=== PATIENT | male | born 1965 | race African-American/Black ===

== ENCOUNTER 2020-04-08 18:59 | Inpatient (IN) | payer MEDICAID ==
[2020-04-08 21:50] LABS: Basophils % (Auto) 0.2 % (0.0-1.8); Hematocrit 51.2 % (35.5-45.6); Hemoglobin 17.5 gm/dl (11.8-15.2); Lymphocytes # (Auto) 0.6 K/mm3 (1.2-5.4); Lymphocytes % (Auto) 9.5 % (13.4-35.0); Mean Corpuscular HGB Conc 34 % (32-34); Mean Corpuscular Volume 94 fl (84-94); Monocytes # (Auto) 0.5 K/mm3 (0.0-0.8); Monocytes % (Auto) 7.6 % (0.0-7.3); Platelet Count 162 K/mm3 (140-440); Red Blood Count 5.42 M/mm3 (3.65-5.03); Red Cell Distribution Width 13.2 % (13.2-15.2)
[2020-04-08 22:04] LABS: Alanine Aminotransferase 26 units/L (7-56); Albumin 3.6 g/dL (3.9-5); BUN/Creatinine Ratio 19; Blood Urea Nitrogen 19 mg/dL (9-20); Calcium 9.2 mg/dL (8.4-10.2); Hemolysis Index 35
--- NOTE | 2020-04-08 22:50 | XRay Report ---
CHEST 2 VIEWS INDICATION / CLINICAL INFORMATION: cough, fever. COMPARISON: 07/30/2019 FINDINGS: SUPPORT DEVICES: None. HEART / MEDIASTINUM: Stable. LUNGS / PLEURA: Interval development of linear infiltrate in the right midlung field. Emphysematous l mercy changes with bulla are similar. No pneumothorax. No pleural effusion. ADDITIONAL FINDINGS: ACDF the lower cervical spine in stable position. IMPRESSION: 1. Interval development of infiltrate in the right midlung field likely represents infectious process given the patient's clinical history. 2. Stable emphysematous lung changes with bulla formation. Signer Name: Elias Tellez MD Signed: 04/08/2020 10:46 PM Workstation Name: [id number]
[2020-04-09] MEDS ORDERED: cefTRIAXone/NS 1 GM/50 ML 1 GM/50 ML BAG IV ONE (02:17)
[2020-04-09] MEDS ORDERED: dexAMETHasone 20 MG/5 ML VIAL IV ONE (02:17)
[2020-04-09] MEDS ORDERED: IPRATROPIUM/ALBUTEROL SULFATE 3 ML AMPUL.NEB IH ONE (02:17)
[2020-04-09] MEDS ORDERED: AZITHROMYCIN 250 MG TAB PO ONE (02:17)
[2020-04-09] MEDS ORDERED: SODIUM CHLORIDE 0.9% 1000 ML 1,000 ML IV ONE ×2 (02:18→05:21)
[2020-04-09 04:02] LABS: Bacteria,Urine 1+ /HPF (Negative); Bilirubin,Urine NEG (Negative); Blood,Urine NEG (Negative); Color,Urine Amber (Yellow); Mucus,Urine 3+ /HPF
[2020-04-09 04:04] LABS: C-Reactive Protein 14.5 mg/dL (0.00-1.30)
--- NOTE | 2020-04-09 05:14 | Emergency Department Report ---
ED Shortness of Breath HPI - General Chief Complaint: Dyspnea/Respdistress Stated Complaint: FATIGUE, TIRED Source: family Mode of arrival: Ambulatory Limitations: No Limitations - History of Present Illness Initial Comments: Patient is a 54-year-old Israeli male with a history of hypertension, COPD and hepatitis B who presents to the ED with complaint of acute onset per sistent worsening shortness of breath, persistent dry cough, wheezing, generalized weakness, diffuse body aches and pains, nasal and sinus congestion and subjective fever and chills for the last 4 days. Patient states that any exertion makes the pain worse as well as his shortness of breath. Patient states that the cough got worse in the last 12 hours such that he cannot rest without coughing. Patient states that no one else at home has had similar symptoms. Patient denies dizziness, syncope, chest pain, abdominal pain, nausea and vomiting, diarrhea, sore throat, change in vision, dysuria, urine frequency and urgency, seizures or testicular pain. MD Complaint: shortness of breath, cough -: Sudden, days(s) (4) Severity: severe Pain Scale: 7 Quality: other (Chest tightness) Consistency: constant Improves With: nothing Worsens With: exertion, movement, coughing Known History Of: COPD, asthma Context: recent URI Associated Symptoms: denies other symptoms, cough Treatments Prior to Arrival: none - Related Data Home Oxygen Therapy: No Allergies Allergy/AdvReac Type Severity Reaction Status Date / Time haloperidol [From Haldol] Allergy Nausea Verified 07/30/19 10:16 haloperidol lactate Allergy Nausea Verified 07/30/19 10:16 [From Haldol] ED Review of Systems ROS: Stated complaint: FATIGUE, TIRED Other details as noted in HPI Constitutional: denies: chills, fever Eyes: denies: eye pain, eye discharge, vision change ENT: congestion. denies: ear pain, throat pain Respiratory: cough, shortness of breath, SOB with exertion, wheezing Cardiovascular: denies: chest pain, palpitations Endocrine: no symptoms reported Gastrointestinal: denies: abdominal pain, nausea, vomiting, diarrhea Genitourinary: denies: urgency, dysuria Musculoskeletal: denies: back pain, joint swelling, arthralgia Skin: denies: rash, lesions Neurological: denies: headache, weakness, paresthesias Psychiatric: denies: anxiety, depression Hematological/Lymphatic: denies: easy bleeding, easy bruising ED Past Medical Hx - Past Medical History Previous Medical History?: Yes Hx Hypertension: Yes Hx Psychiatric Treatment: Yes Hx COPD: Yes Additional medical history: Hepatitis B - Surgical History Past Surgical History?: Yes Additional Surgical History: Certvical Spine - Social History Smoking Status: Never Smoker Substance Use Type: None ED Physical Exam - General Limitations: No Limitations General appearance: alert, in no apparent distress - Head Head exam: Present: atraumatic, normocephalic, normal inspection - Eye Eye exam: Present: normal appearance, PERRL, EOMI Pupils: Present: normal accommodation - ENT ENT exam: Present: normal orophraynx, mucous membranes moist, TM's normal bilaterally, normal external ear exam, other (Grossly congested nasal passages) - Neck Neck exam: Present: normal inspection, full ROM - Respiratory Respiratory exam: Present: wheezes (Diffuse coarse wheezes throughout). Absent: respiratory distress, chest wall tenderness, accessory muscle use, decreased breath sounds - Cardiovascular Cardiovascular Exam: Present: normal rhythm, tachycardia, normal heart sounds. Absent: systolic murmur, diastolic murmur, rubs, gallop - GI/Abdominal GI/Abdominal exam: Present: soft, normal bowel sounds. Absent: tenderness, guarding, rebound, hyperactive bowel sounds, organomegaly - Extremities Exam Extremities exam: Present: normal inspection, full ROM, normal capillary refill - Back Exam Back exam: Present: normal inspection, full ROM. Absent: tenderness, CVA tenderness (R), CVA tenderness (L), muscle spasm, paraspinal tenderness, vertebral tenderness - Neurological Exam Neurological exam: Present: alert, oriented X3, CN II-XII intact, normal gait, reflexes normal - Psychiatric Psychiatric exam: Present: normal affect, normal mood, anxious - Skin Skin exam: Present: warm, dry, intact, normal color. Absent: rash ED Course Vital Signs 04/08/20 04/09/20 20:52 02:50 Temperature 98.1 F Pulse Rate 114 H Pulse Rate [ 116 H Bilateral] Respiratory 22 Rate Respiratory 22 Rate [Bilateral ] Blood Pressure 112/73 O2 Sat by Pulse 95 Oximetry ED Medical Decision Making - Lab Data Result diagrams: 04/08/20 21:06 04/09/20 03:05 - Radiology Data Radiology results: report reviewed, image reviewed Chest x-ray shows interval development of infiltrate in the right mild lung likely represents infectious process given the patient clinical history. It also shows stable emphysematous lung changes with bulla formation - Medical Decision Making This is a 54-year-old Israeli male with a history of hypertension, COPD and hepatitis B who presents to the ED with complaint of acute onset persistent worsening shortness of breath, persistent dry cough, wheezing, generalized weakness, diffuse body aches and pains, nasal and sinus congestion and subjective fever and chills for the last 4 days. Patient states that any exertion makes the pain worse as well as his shortness of breath. Patient states that the cough got worse in the last 12 hours such that he cannot rest without coughing. Patient states that no one else at home has had similar symptoms. In the ED, patient is alert and oriented x3 and in mild respiratory distress with oxygen saturation of 90% in room air, which gets worse with exerti on to 86% in room air. Patient received DuoNeb treatment in the ED, Decadron, normal saline 1 L IV bolus x1, and also treated with Tylenol. Chest x-ray shows interval development of infiltrate in the right mild lung likely represents infectious process given the patient clinical history. It also shows stable emphysematous lung changes with bulla formation. On reevaluation, patient's oxygen saturation continues to deteriorate to around 88% in room air. Patient was placed on nasal canula oxygen at 2 liters/min. The patient's oxygen saturation improved to 96%. Patient's case was discussed with the Hospitalist Physician Dr. Chan and Ms Gricelda MILLARD hospitalist who admitted the patient to the hospital. - Differential Diagnosis Pneumonia; COPD; Covid-19; URI; ACS; PE; Bronchitis Critical care attestation.: If time is entered above; I have spent that time in minutes in the direct care of this critically ill patient, excluding procedure time. ED Disposition Clinical Impression: Dyspnea due to severe acute respiratory syndrome coronavirus 2 (SARS-CoV-2) disease, Acute exacerbation of COPD with asthma, Pneumonia due to severe acute respiratory syndrome coronavirus 2 (SARS-CoV-2), Shortness of breath on exertion Disposition: OP ADMIT IP TO THIS HOSP Is pt being admited?: Yes Does the pt Need Aspirin: Yes Condition: Stable Instructions: Asthma (ED), Bacterial Pneumonia (ED), Shortness of Breath, Adult, [id number], Chronic Obstructive Pulmonary Disease Exacerbation, [id number] Referrals: PRIMARY CARE, [Primary Care Provider] - 3-5 Days Time of Disposition: 05:26 Print Language: TURKISH
[2020-04-09] MEDS ORDERED: ACETAMINOPHEN 325 MG TAB PO ONE (05:21)
[2020-04-09] MEDS ORDERED: ASPIRIN 81 MG TAB CHEW PO ONE (05:33)
[2020-04-09] MEDS ORDERED: ACETAMINOPHEN 325 MG TAB PO PRN (05:35)
[2020-04-09] MEDS ORDERED: ONDANSETRON 4 MG/2 ML INJ IV PRN (05:35)
--- NOTE | 2020-04-09 05:52 | History and Physical Report ---
History of Present Illness Date of examination: 04/09/20 Date of admission: 04/09/20 Chief complaint: 04/09/20 History of present illness: Patient is a 54-year-old [place]ian male with a history of hypertension, COPD and hepatitis B who presents to the ED with complaint of acute onset persistent worsening shortness of breath, persistent dry cough, wheezing, gen eralized weakness, diffuse body aches and pains, nasal and sinus congestion and subjective fever and chills for the last 4 days. Patient states that any exertion makes the pain worse as well as his shortness of breath. Patient states that the cough got worse in the last 12 hours such that he cannot rest without coughing. Patient states that no one else at home has had similar symptoms. Patient denies dizziness, syncope, chest pain, abdominal pain, nausea and vomiting, diarrhea, sore throat, change in vision, dysuria, urine frequency and urgency, seizures or testicular pain. Ed work up shows sodium 132, potassium 4.2, C02 19,[id number], WBC 6.7 and hemoglobin 17.5 Ferritin 960, [id number], CRP 13.5 Chest x-ray shows -right midlung infiltrate/emphysema patient seen at bedside in Ed. reviewed lab, mar, and v/s. patient denies tobacco, alcohol and illicit drug abuse. Past History Past Medical History: COPD, hypertension, other (Hep B) Past Surgical History: Other (pt said neck surgery) Social history: no significant social history Family history: no significant family history Medications and Allergies Allergies Allergy/AdvReac Type Severity Reaction Status Date / Time haloperidol [From Haldol] Allergy Nausea Verified 07/30/19 10:16 haloperidol lactate Allergy Nausea Verified 07/30/19 10:16 [From Haldol] Active Meds: Active Medications Acetaminophen (Acetaminophen 325 Mg Tab) 650 mg PO Q4H PRN PRN Reason: Pain MILD(1-3)/Fever >100.5/SHI Sodium Chloride (Nacl 0.9% 1000 Ml) 1,000 mls @ 999 mls/hr IV BOLUS ONE Stop: 04/09/20 06:21 Ondansetron HCl (Ondansetron 4 Mg/2 Ml Inj) 4 mg IV Q8H PRN PRN Reason: Nausea And Vomiting Sodium Chloride (Sodium Chloride 0.9% 10 Ml Flush Syringe) 10 ml IV BID [facility] Sodium Chloride (Sodium Chloride 0.9% 10 Ml Flush Syringe) 10 ml IV PRN PRN PRN Reason: LINE FLUSH Review of Systems Constitutional: chills, fatigue, weakness, malaise Ears, nose, mouth and throat: no epistaxis, no bleeding gums Cardiovascular: orthopnea, high blood pressure Respiratory: cough, shortness of breath, dyspnea on exertion, wheezing, respira tory infections Gastrointestinal: no melena Genitourinary Male: no dysuria Rectal: no hemorrhoids Musculoskeletal: no neck stiffness Integumentary: no rash, no wounds Neurological: no head injury Psychiatric: anxiety Endocrine: no weight change Hematologic/Lymphatic: no easy bruising Exam - Constitutional Vitals: Temp Pulse Resp BP Pulse Ox 98.1 F 116 H 22 112/73 95 04/08/20 20:52 04/09/20 02:50 04/09/20 02:50 04/08/20 20:52 04/08/20 20:52 General appearance: Present: mild distress - EENT Eyes: Present: PERRL ENT: hearing intact, clear oral mucosa - Neck Neck: Present: supple, normal ROM - Respiratory Respiratory effort: other (shortness of breath and cough) Respiratory: bilateral: wheezing - Cardiovascular Heart rate: 114 Heart Sounds: Present: S1 & S2. Absent: rub, click - Extremities Extremities: pulses symmetrical, No edema Peripheral Pulses: within normal limits - Abdominal General gastrointestinal: Present: soft, non-tender, non-distended, normal bowel sounds Male genitourinary: Present: normal - Integumentary Integumentary: Present: clear, warm, dry - Musculoskeletal Musculoskeletal: gait normal, strength equal bilaterally - Psychiatric Psychiatric: appropriate mood/affect, intact judgment & insight - Neurologic Neurologic: CNII-XII intact, moves all extremities - Allied Health Allied health notes reviewed: nursing HEART Score - HEART Score Troponin: Troponin T < 0.010 ng/mL (0.00-0.029) 04/09/20 03:05 Results - Labs CBC & Chem 7: 04/08/20 21:06 04/09/20 03:05 Labs: Abnormal lab results 04/08/20 04/08/20 04/09/20 Range/Units 21:06 21:06 03:05 RBC 5.42 H (3.65-5.03) M/mm3 Hgb 17.5 H (11.8-15.2) gm/dl Hct 51.2 H (35.5-45.6) % Lymph % (Auto) 9.5 L (13.4-35.0) % [place] % (Auto) 7.6 H (0.0-7.3) % Lymph # (Auto) 0.6 L (1.2-5.4) K/mm3 Seg Neutrophils % 82.7 H (40.0-70.0) % Sodium 132 L (137-145) mmol/L Carbon Dioxide 19 L (22-30) mmol/L Glucose 141 H 124 H (75-100) mg/dL Ferritin (30.0-300.0) ng/mL Lactate Dehydrogenase 324 H (91-180) units/L C-Reactive Protein 14.50 H (0.00-1.30) mg/dL Albumin 3.6 L (3.9-5) g/dL Ur Specific [place] (1.003-1.030) 04/09/20 04/09/20 Range/Units 03:05 03:52 RBC (3.65-5.03) M/mm3 Hgb (11.8-15.2) gm/dl Hct (35.5-45.6) % Lymph % (Auto) (13.4-35.0) % [place] % (Auto) (0.0-7.3) % Lymph # (Auto) (1.2-5.4) K/mm3 Seg Neutrophils % (40.0-70.0) % Sodium (137-145) mmol/L Carbon Dioxide (22-30) mmol/L Glucose (75-100) mg/dL Ferritin 960.9 H (30.0-300.0) ng/mL Lactate Dehydrogenase (91-180) units/L C-Reactive Protein (0.00-1.30) mg/dL Albumin (3.9-5) g/dL Ur Specific [place] 1.033 H (1.003-1.030) Assessment and Plan - Patient Problems (1) Acute respiratory failure with hypoxia Current Visit: Yes Status: Acute Plan to address problem: oxygen supplement [id number] patient wheezing on auscultation-continue systemic steroids (2) Acute exacerbation of COPD with asthma Current Visit: Yes Status: Acute Plan to address problem: respiratory care-bronchodilators and oxygen supplement Chest x-ray shows right midline infiltrate and emphysema [employer] consult (3) Person under investigation for COVID-19 Current Visit: Yes Status: Acute Plan to address problem: Chest x-ray shows infiltrate Etiology unknown-Covid 19 test ordered- Empiric abx Elevated inflammatory makers-trend Airborne and contact isolation Ascorbic acid and zinc sulphate Blood culture-urinalysis (4) Polycythemia Current Visit: Yes Status: Acute Plan to address problem: Most likely 2/2 to chronic hypoxia/COPD/dehydration Continue oxygen supplement patient denies tobacco use daily aspirin Monitor H/H (5) Hyponatremia Current Visit: Yes Status: Acute Plan to address problem: IV hydration with .9NS Monitor sodium level Monitor kidney function (6) DVT prophylaxis Current Visit: Yes Status: Acute Plan to address problem: Lovenox
[2020-04-09] MEDS ORDERED: traMADol 50 MG TAB PO PRN (06:22)
[2020-04-09] MEDS ORDERED: LACTULOSE 20 GM/30 ML ORAL LIQD PO PRN (06:22)
[2020-04-09] MEDS ORDERED: traZODone 50 MG TAB PO PRN (06:22)
[2020-04-09] MEDS ORDERED: MORPHINE 2 MG/1 ML INJ IV PRN (06:22)
[2020-04-09] MEDS ORDERED: ALUM-MAG HYDROXIDE-SIMETHICONE 200-200-20MG/5ML ORAL LIQD 30 ML PO PRN (06:22)
[2020-04-09 07:59] LABS: C-Reactive Protein 13.8 mg/dL (0.00-1.30)
[2020-04-09] MEDS: dexAMETHasone 4 MG/ML VIAL IV SCH (09:31)
[2020-04-09] MEDS: ASPIRIN EC 81 MG TAB PO SCH (09:31)
[2020-04-09] MEDS: ENOXAPARIN 40 MG/0.4 ML INJ SUB-Q SCH (09:31)
[2020-04-09] MEDS: FAMOTIDINE 20 MG TAB PO SCH (09:31)
[2020-04-09] MEDS: cefTRIAXone/NS 2 GM/100 ML 2 GM/100 ML BAG IV SCH (09:32)
[2020-04-09] MEDS ORDERED: AZITHROMYCIN 500 MG in SODIUM CHLORIDE 0.9% 250ML 250 ML IV SCH (10:00)
--- NOTE | 2020-04-09 11:59 | Event Note ---
Date: 04/09/20 Patient was admitted this morning, patient's chart and medications reviewed Agree with the current management, will closely monitor the patient and adjust the management as needed Plan of care reviewed with the patient and his nurse
--- NOTE | 2020-04-09 13:54 | Consultation ---
History of Present Illness Consult date: 04/09/20 Requesting physician: ANGEL IVAN Reason for consult: COPD, other (PUI COVID-19) History of present illness: PULMONARY/CCM CONSULT NOTE (Full dictation # [id number]) Please see dictated notes for full details Past History Past Medical History: COPD, hypertension, other (Hep B) Past Surgical History: Other (pt said neck surgery) Social history: no significant social history Family history: no significant family history Medications and Allergies Allergies Allergy/AdvReac Type Severity Reaction Status Date / Time haloperidol [From Haldol] Allergy Nausea Verified 07/30/19 10:16 haloperidol lactate Allergy Nausea Verified 07/30/19 10:16 [From Haldol] Home Medications Medication Instructions Recorded Confirmed Last Taken Type Entecavir 1 mg PO DAILY 04/10/20 04/10/20 Unknown History Fluticasone/Salmeterol [Advair 1 puff IH BID 04/10/20 04/10/20 Unknown History Diskus 500-50 mcg] Lisinopril [Zestril] 10 mg PO DAILY 04/10/20 04/10/20 Unknown History Pantoprazole Sodium 40 mg PO DAILY 04/10/20 04/10/20 Unknown History Tamsulosin [Flomax] 0.4 mg PO DAILY 04/10/20 04/10/20 Unknown History Active Meds: Active Medications Acetaminophen (Acetaminophen 325 Mg Tab) 650 mg PO Q4H PRN PRN Reason: Pain MILD(1-3)/Fever >100.5/SHI Al Hydrox/Mg Hydrox/Simethicone (Alum-Mag Hydroxide-Simethicone 350-850-60sz/5ml Oral Liqd 30 Ml) 15 ml PO Q4H PRN PRN Reason: Indigestion Ascorbic Acid (Ascorbic Acid 500 Mg Tab) 500 mg PO QDAY [facility] Aspirin (Aspirin Ec 81 Mg Tab) 81 mg PO QDAY [facility] Last Admin: 04/09/20 09:31 Dose: 81 mg Documented by: Dexamethasone (Dexamethasone 4 Mg/Ml Vial) 6 mg IV DAILY [facility] Stop: 04/18/20 10:01 Last Admin: 04/09/20 09:31 Dose: 6 mg Documented by: Enoxaparin Sodium (Enoxaparin 40 Mg/0.4 Ml Inj) 40 mg SUB-Q QDAY [facility]; Protocol Last Admin: 04/09/20 09:31 Dose: 40 mg Documented by: Famotidine (Famotidine 20 Mg Tab) 20 mg PO BID [facility] Last Admin: 04/09/20 09:31 Dose: 20 mg Documented by: Ceftriaxone Sodium (Rocephin/Ns 2 Gm/100 Ml) 2 gm in 100 mls @ 200 mls/hr IV Q24HR [facility]; Protocol Last Infusion: 04/09/20 10:05 Dose: Infused Documented by: Azithromycin 500 mg/ Sodium (Chloride) 250 mls @ 250 mls/hr IV Q24HR [facility]; Protocol Last Admin: 04/09/20 12:15 Dose: 250 mls/hr Documented by: Sodium Chloride (Nacl 0.9% 1000 Ml) 1,000 mls @ 75 mls/hr IV DIRECT [facility] Lactulose (Lactulose 20 Gm/30 Ml Oral Liqd) 20 gm PO QHS PRN PRN Reason: Constipation Morphine Sulfate (Morphine 2 Mg/1 Ml Inj) 2 mg IV Q4H PRN PRN Reason: Pain, Moderate (4-6) Ondansetron HCl (Ondansetron 4 Mg/2 Ml Inj) 4 mg IV Q8H PRN PRN Reason: Nausea And Vomiting Sodium Chloride (Sodium Chloride 0.9% 10 Ml Flush Syringe) 10 ml IV BID [facility] Last Admin: 04/09/20 09:32 Dose: 10 ml Documented by: Sodium Chloride (Sodium Chloride 0.9% 10 Ml Flush Syringe) 10 ml IV PRN PRN PRN Reason: LINE FLUSH Last Admin: 04/09/20 12:16 Dose: 10 ml Documented by: Tramadol HCl (Tramadol 50 Mg Tab) 50 mg PO Q4H PRN PRN Reason: Pain, Moderate (4-6) Trazodone HCl (Trazodone 50 Mg Tab) 50 mg PO QHS PRN PRN Reason: Insomnia Physical Examination Vital signs: Vital Signs Temp Pulse Resp BP Pulse Ox 98.1 F 114 H 22 112/73 95 04/08/20 20:52 04/08/20 20:52 04/08/20 20:52 04/08/20 20:52 04/08/20 20:52 Results - Laboratory Findings CBC and BMP: 04/10/20 05:08 04/10/20 05:08 PT/INR, D-dimer D-Dimer 135.00 ng/mlDDU (0-234) 04/09/20 07:17 Abnormal lab findings: Abnormal Labs 04/08/20 04/08/20 04/09/20 21:06 21:06 03:05 RBC 5.42 H Hgb 17.5 H Hct 51.2 H Lymph % (Auto) 9.5 L [place] % (Auto) 7.6 H Lymph # (Auto) 0.6 L Seg Neutrophils % 82.7 H Sodium 132 L Carbon Dioxide 19 L Glucose 141 H 124 H Hemoglobin A1c Ferritin Lactate Dehydrogenase 324 H C-Reactive Protein 14.50 H Albumin 3.6 L Ur Specific [place] 04/09/20 04/09/20 04/09/20 03:05 03:52 07:17 RBC Hgb Hct Lymph % (Auto) [place] % (Auto) Lymph # (Auto) Seg Neutrophils % Sodium Carbon Dioxide Glucose 152 H Hemoglobin A1c Ferritin 960.9 H Lactate Dehydrogenase 314 H C-Reactive Protein 13.80 H Albumin Ur Specific [place] 1.033 H 04/09/20 04/09/20 07:17 07:17 RBC Hgb Hct Lymph % (Auto) [place] % (Auto) Lymph # (Auto) Seg Neutrophils % Sodium Carbon Dioxide Glucose Hemoglobin A1c 6.4 H Ferritin 940.5 H Lactate Dehydrogenase C-Reactive Protein Albumin Ur Specific [place]
--- NOTE | 2020-04-09 14:17 | Consultation ---
History of Present Illness - Reason for Consult Consult date: 04/09/20 pneumonia, COVID rule out Requesting physician: ANGEL IVAN - History of Present Illness The patient is a 54-year-old male with hypertension, COPD, chronic hepatitis B was admitted to the hospital with cough, shortness of breath, weakness, body aches. He was also having fever and chills for about 4 days prior to admission. Upon evaluation in the ER, chest x-ray showed pneumonia, WBC 6.7, D-dimer 135, ferritin 940, LDH 314, CRP 13.8, procalcitonin 1.31. COVID-19 PCR is pending. Infectious diseases was consulted for additional evaluation. No fever here. Currently on oxygen by nasal cannula. Review of Systems: reviewed in the chart, unable to obtain, minimize risk of transmission Past History Past Medical History: COPD, hypertension, other (Hep B) Past Surgical History: Other (pt said neck surgery) Social history: no significant social history Family history: no significant family history Medications and Allergies Allergies Allergy/AdvReac Type Severity Reaction Status Date / Time haloperidol [From Haldol] Allergy Nausea Verified 07/30/19 10:16 haloperidol lactate Allergy Nausea Verified 07/30/19 10:16 [From Haldol] Active Meds: Active Medications Acetaminophen (Acetaminophen 325 Mg Tab) 650 mg PO Q4H PRN PRN Reason: Pain MILD(1-3)/Fever >100.5/SHI Al Hydrox/Mg Hydrox/Simethicone (Alum-Mag Hydroxide-Simethicone [id number]/5ml Oral Liqd 30 Ml) 15 ml PO Q4H PRN PRN Reason: Indigestion Ascorbic Acid (Ascorbic Acid 500 Mg Tab) 500 mg PO QDAY [facility] Aspirin (Aspirin Ec 81 Mg Tab) 81 mg PO QDAY [facility] Last Admin: 04/09/20 09:31 Dose: 81 mg Documented by: Dexamethasone (Dexamethasone 4 Mg/Ml Vial) 6 mg IV DAILY [facility] Stop: 04/18/20 10:01 Last Admin: 04/09/20 09:31 Dose: 6 mg Documented by: Enoxaparin Sodium (Enoxaparin 40 Mg/0.4 Ml Inj) 40 mg SUB-Q QDAY [facility]; Protocol Last Admin: 04/09/20 09:31 Dose: 40 mg Documented by: Famotidine (Famotidine 20 Mg Tab) 20 mg PO BID AMARIS Last Admin: 04/09/20 09:31 Dose: 20 mg Documented by: Ceftriaxone Sodium (Rocephin/Ns 2 Gm/100 Ml) 2 gm in 100 mls @ 200 mls/hr IV Q24HR AMARIS; Protocol Last Infusion: 04/09/20 10:05 Dose: Infused Documented by: Azithromycin 500 mg/ Sodium (Chloride) 250 mls @ 250 mls/hr IV Q24HR AMARIS; Protocol Last Admin: 04/09/20 12:15 Dose: 250 mls/hr Documented by: Sodium Chloride (Nacl 0.9% 1000 Ml) 1,000 mls @ 75 mls/hr IV DIRECT AMARIS Lactulose (Lactulose 20 Gm/30 Ml Oral Liqd) 20 gm PO QHS PRN PRN Reason: Constipation Morphine Sulfate (Morphine 2 Mg/1 Ml Inj) 2 mg IV Q4H PRN PRN Reason: Pain, Moderate (4-6) Ondansetron HCl (Ondansetron 4 Mg/2 Ml Inj) 4 mg IV Q8H PRN PRN Reason: Nausea And Vomiting Sodium Chloride (Sodium Chloride 0.9% 10 Ml Flush Syringe) 10 ml IV BID AMARIS Last Admin: 04/09/20 09:32 Dose: 10 ml Documented by: Sodium Chloride (Sodium Chloride 0.9% 10 Ml Flush Syringe) 10 ml IV PRN PRN PRN Reason: LINE FLUSH Last Admin: 04/09/20 12:16 Dose: 10 ml Documented by: Tramadol HCl (Tramadol 50 Mg Tab) 50 mg PO Q4H PRN PRN Reason: Pain, Moderate (4-6) Trazodone HCl (Trazodone 50 Mg Tab) 50 mg PO QHS PRN PRN Reason: Insomnia Physical Examination - Physical Exam Narrative exam: Physical Exam (reviewed in chart to minimize risk of transmission) Constitutional: deferred Head, Ears, Nose: deferred Eyes: deferred Neck: deferred Oral: deferred Cardiovascular: deferred Respiratory: deferred GI: deferred Musculoskeletal: deferred Skin: deferred Hem/Lymphatic: deferred Psych: deferred Neurological: deferred - Constitutional Vitals: Vital Signs Temp Pulse Resp BP Pulse Ox 98 F 89 20 102/75 96 04/09/20 09:15 04/09/20 09:15 04/09/20 09:16 04/09/20 09:15 04/09/20 09:16 Temperature -Last 24 Hours Temperature 98 F Temperature 98.1 F Results - Labs CBC & Chem 7: 04/08/20 21:06 04/09/20 07:17 Labs: Abnormal lab results 04/08/20 04/08/20 04/09/20 Range/Units 21:06 21:06 03:05 RBC 5.42 H (3.65-5.03) M/mm3 Hgb 17.5 H (11.8-15.2) gm/dl Hct 51.2 H (35.5-45.6) % Lymph % (Auto) 9.5 L (13.4-35.0) % [place] % (Auto) 7.6 H (0.0-7.3) % Lymph # (Auto) 0.6 L (1.2-5.4) K/mm3 Seg Neutrophils % 82.7 H (40.0-70.0) % Sodium 132 L (137-145) mmol/L Carbon Dioxide 19 L (22-30) mmol/L Glucose 141 H 124 H (75-100) mg/dL Hemoglobin A1c (4-6) % Ferritin (30.0-300.0) ng/mL Lactate Dehydrogenase 324 H (91-180) units/L C-Reactive Protein 14.50 H (0.00-1.30) mg/dL Albumin 3.6 L (3.9-5) g/dL Ur Specific [place] (1.003-1.030) 04/09/20 04/09/20 04/09/20 Range/Units 03:05 03:52 07:17 RBC (3.65-5.03) M/mm3 Hgb (11.8-15.2) gm/dl Hct (35.5-45.6) % Lymph % (Auto) (13.4-35.0) % [place] % (Auto) (0.0-7.3) % Lymph # (Auto) (1.2-5.4) K/mm3 Seg Neutrophils % (40.0-70.0) % Sodium (137-145) mmol/L Carbon Dioxide (22-30) mmol/L Glucose 152 H (75-100) mg/dL Hemoglobin A1c (4-6) % Ferritin 960.9 H (30.0-300.0) ng/mL Lactate Dehydrogenase 314 H (91-180) units/L C-Reactive Protein 13.80 H (0.00-1.30) mg/dL Albumin (3.9-5) g/dL Ur Specific [place] 1.033 H (1.003-1.030) 04/09/20 04/09/20 Range/Units 07:17 07:17 RBC (3.65-5.03) M/mm3 Hgb (11.8-15.2) gm/dl Hct (35.5-45.6) % Lymph % (Auto) (13.4-35.0) % [place] % (Auto) (0.0-7.3) % Lymph # (Auto) (1.2-5.4) K/mm3 Seg Neutrophils % (40.0-70.0) % Sodium (137-145) mmol/L Carbon Dioxide (22-30) mmol/L Glucose (75-100) mg/dL Hemoglobin A1c 6.4 H (4-6) % Ferritin 940.5 H (30.0-300.0) ng/mL Lactate Dehydrogenase (91-180) units/L C-Reactive Protein (0.00-1.30) mg/dL Albumin (3.9-5) g/dL Ur Specific [place] (1.003-1.030) - Imaging and Cardiology Chest x-ray: report reviewed, image reviewed (R pneumonia) Assessment and Plan Cultures: SARS CoV2 PCR: Pending Blood culture: In process A/P: 54-year-old male with hypertension, COPD, chronic hepatitis B : #R pneumonia: COVID pending. Procal elevated. #Acute hypoxic respiratory failure: on oxygen. #Acute COPD exacerbation: On steroids #Hepatitis B: Status unclear. AST, ALT are normal at this time. Will check surface antigen and serologies. Recs: -Follow-up COVID-19 PCR -Continue ceftriaxone, azithromycin as CAP coverage for 5 days -already on steroids for COPD Ness Russo MD, FACP [facility] ([facility]) O: [phone] F: [phone]
[2020-04-10] MEDS: SODIUM CHLORIDE 0.9% 1000 ML 1,000 ML IV SCH ×2 (05:16→18:45)
[2020-04-10 06:00] LABS: Basophils % (Auto) 0.1 % (0.0-1.8); Hematocrit 47.9 % (35.5-45.6); Hemoglobin 16.1 gm/dl (11.8-15.2); Lymphocytes # (Auto) 0.7 K/mm3 (1.2-5.4); Lymphocytes % (Auto) 5.7 % (13.4-35.0); Mean Corpuscular HGB Conc 34 % (32-34); Mean Corpuscular Volume 95 fl (84-94); Monocytes # (Auto) 0.8 K/mm3 (0.0-0.8); Monocytes % (Auto) 6.5 % (0.0-7.3); Platelet Count 176 K/mm3 (140-440); Red Blood Count 5.06 M/mm3 (3.65-5.03); Red Cell Distribution Width 13.4 % (13.2-15.2)
[2020-04-10 06:13] LABS: Blood Urea Nitrogen 19 mg/dL (9-20); Calcium 8.3 mg/dL (8.4-10.2); Hemolysis Index 17
[2020-04-10 06:35] LABS: BUN/Creatinine Ratio 27
[2020-04-10] MEDS: AZITHROMYCIN 250 MG TAB PO SCH (09:30)
[2020-04-10] MEDS: ASPIRIN EC 81 MG TAB PO SCH (09:30)
[2020-04-10] MEDS: FAMOTIDINE 20 MG TAB PO SCH ×2 (09:31→22:00)
[2020-04-10] MEDS: dexAMETHasone 4 MG/ML VIAL IV SCH (09:31)
[2020-04-10] MEDS: ASCORBIC ACID 500 MG TAB PO SCH (09:31)
[2020-04-10] MEDS: ENOXAPARIN 40 MG/0.4 ML INJ SUB-Q SCH (09:31)
[2020-04-10] MEDS: cefTRIAXone/NS 2 GM/100 ML 2 GM/100 ML BAG IV SCH (09:47)
--- NOTE | 2020-04-10 13:52 | Progress Note ---
Assessment and Plan Assessment and plan: -- positive COVID-19 infection 04/09/2020 Current Visit: Yes Status: Acute Plan to address problem: Chest x-ray shows infiltrate Continue empiric abx, procalcitonin is high Airborne and contact isolation Ascorbic acid and zinc sulphate Blood culture-urinalysis IV steroids, IV remdesivir Prone position ID following Anticoagulation per protocol Follow inflammatory markers --Acute respiratory failure with hypoxia Current Visit: Yes Status: Acute Plan to address problem: oxygen supplement, titrate O2 sats to more than 90% [id number] patient wheezing on auscultation-continue systemic steroids Home oxygen evaluation -- Acute exacerbation of COPD with asthma Current Visit: Yes Status: Acute Plan to address problem: respiratory care-bronchodilators and oxygen supplement Chest x-ray shows right midline infiltrate and emphysema Pulmonary following --Right-sided pneumonia; Current Visit: Yes Status: Acute Plan to address problem: procalcitonin high, We will continue empiric antibiotics Follow cultures -- Polycythemia Current Visit: Yes Status: Acute Plan to address problem: Most likely 2/2 to chronic hypoxia/COPD/dehydration Continue oxygen supplement patient denies tobacco use daily aspirin, Monitor H/H -- Hyponatremia/resolved Current Visit: Yes Status: Acute Plan to address problem: I will continue IV hydration with .9NS Monitor electrolytes --DVT prophylaxis Current Visit: Yes Status: Acute Plan to address problem: Lovenox We will closely monitor the patient and adjust management as needed Plan of care reviewed with the patient and his nurse 04/10/2020; patient was Covid positive on 04/09/2020 And contact him droplet isolation History Interval history: I have seen and examined the patient at the bedside today Patient's chart and medications reviewed Covid positive pneumonia Hospitalist Physical - Constitutional Vitals: Temp Pulse Resp BP Pulse Ox 98.9 F 87 18 127/88 93 04/10/20 05:45 04/10/20 05:45 04/10/20 05:45 04/10/20 05:45 04/10/20 05:45 General appearance: Present: mild distress, well-nourished, other (Responding appropriately) - EENT ENT: other (Not performed to reduce the risk of this transmission ) - Neck Neck: Present: other (Not performed to reduce the risk of this transmission ) - Respiratory Respiratory effort: other (Not performed to reduce the risk of this transmission ) - Cardiovascular Rhythm: other (Not performed to reduce the risk of this transmission) - Extremities Extremities: abnormal (Not performed to reduce the risk of disease transmission ) - Abdominal General gastrointestinal: soft, non-tender, non-distended, normal bowel sounds - Integumentary Integumentary: Present: clear, warm - Psychiatric Psychiatric: appropriate mood/affect, cooperative - Neurologic Neurologic: moves all extremities HEART Score - HEART Score Troponin: Troponin T < 0.010 ng/mL (0.00-0.029) 04/09/20 03:05 Results - Labs CBC & Chem 7: 04/10/20 05:08 04/10/20 05:08 Labs: Laboratory Last Values WBC 12.5 K/mm3 (4.5-11.0) H 04/10/20 05:08 RBC 5.06 M/mm3 (3.65-5.03) H 04/10/20 05:08 Hgb 16.1 gm/dl (11.8-15.2) H 04/10/20 05:08 Hct 47.9 % (35.5-45.6) H 04/10/20 05:08 MCV 95 fl (84-94) H 04/10/20 05:08 MCH 32 pg (28-32) 04/10/20 05:08 MCHC 34 % (32-34) 04/10/20 05:08 RDW 13.4 % (13.2-15.2) 04/10/20 05:08 Plt Count 176 K/mm3 (140-440) 04/10/20 05:08 Lymph % (Auto) 5.7 % (13.4-35.0) L 04/10/20 05:08 [place] % (Auto) 6.5 % (0.0-7.3) 04/10/20 05:08 Eos % (Auto) 0.0 % (0.0-4.3) 04/10/20 05:08 Baso % (Auto) 0.1 % (0.0-1.8) 04/10/20 05:08 Lymph # (Auto) 0.7 K/mm3 (1.2-5.4) L 04/10/20 05:08 [place] # (Auto) 0.8 K/mm3 (0.0-0.8) 04/10/20 05:08 Eos # (Auto) 0.0 K/mm3 (0.0-0.4) 04/10/20 05:08 Baso # (Auto) 0.0 K/mm3 (0.0-0.1) 04/10/20 05:08 Seg Neutrophils % 87.7 % (40.0-70.0) H 04/10/20 05:08 Seg Neutrophils # 10.9 K/mm3 (1.8-7.7) H 04/10/20 05:08 D-Dimer 135.00 ng/mlDDU (0-234) 04/09/20 07:17 Sodium 138 mmol/L (137-145) 04/10/20 05:08 Potassium 4.2 mmol/L (3.6-5.0) 04/10/20 05:08 Chloride 106.5 mmol/L (98-107) 04/10/20 05:08 Carbon Dioxide 21 mmol/L (22-30) L 04/10/20 05:08 Anion Gap 15 mmol/L 04/10/20 05:08 BUN 19 mg/dL (9-20) 04/10/20 05:08 Creatinine 0.7 mg/dL (0.8-1.3) L 04/10/20 05:08 Estimated GFR > 60 ml/min 04/10/20 05:08 BUN/Creatinine Ratio 27 % 04/10/20 05:08 Glucose 152 mg/dL (75-100) H 04/10/20 05:08 Hemoglobin A1c 6.4 % (4-6) H 04/09/20 07:17 Lactic Acid 1.30 mmol/L (0.7-2.0) 04/09/20 03:45 Calcium 8.3 mg/dL (8.4-10.2) L 04/10/20 05:08 Phosphorus 3.10 mg/dL (2.5-4.5) 04/09/20 07:17 Magnesium 2.00 mg/dL (1.7-2.3) 04/09/20 07:17 Ferritin 940.5 ng/mL (30.0-300.0) H 04/09/20 07:17 Total Bilirubin 0.50 mg/dL (0.1-1.2) 04/08/20 21:06 AST 31 units/L (5-40) 04/08/20 21:06 ALT 26 units/L (7-56) 04/08/20 21:06 Alkaline Phosphatase 45 units/L (35-129) 04/08/20 21:06 Lactate Dehydrogenase 314 units/L (91-180) H 04/09/20 07:17 Troponin T < 0.010 ng/mL (0.00-0.029) 04/09/20 03:05 C-Reactive Protein 13.80 mg/dL (0.00-1.30) H 04/09/20 07:17 Total Protein 7.3 g/dL (6.3-8.2) 04/08/20 21:06 Albumin 3.6 g/dL (3.9-5) L 04/08/20 21:06 Albumin/Globulin Ratio 1.0 % 04/08/20 21:06 Procalcitonin 1.31 ng/mL (<0.15) 04/09/20 07:17 Urine Color [place] (Yellow) 04/09/20 03:52 Urine Turbidity Clear (Clear) 04/09/20 03:52 Urine pH 5.0 (5.0-7.0) 04/09/20 03:52 Ur Specific [place] 1.033 (1.003-1.030) H 04/09/20 03:52 Urine Protein 100 mg/dl mg/dL (Negative) 04/09/20 03:52 Urine Glucose (UA) >=500 mg/dL (Negative) 04/09/20 03:52 Urine Ketones 20 mg/dL (Negative) 04/09/20 03:52 Urine Blood Neg (Negative) 04/09/20 03:52 Urine Nitrite Neg (Negative) 04/09/20 03:52 Urine Bilirubin Neg (Negative) 04/09/20 03:52 Urine Urobilinogen 2.0 mg/dL (<2.0) 04/09/20 03:52 Ur Leukocyte Esterase Neg (Negative) 04/09/20 03:52 Urine WBC (Auto) 3.0 /HPF (0.0-6.0) 04/09/20 03:52 Urine RBC (Auto) 2.0 /HPF (0.0-6.0) 04/09/20 03:52 U Epithel Cells (Auto) < 1.0 /HPF (0-13.0) 04/09/20 03:52 Urine Bacteria (Auto) 1+ /HPF (Negative) 04/09/20 03:52 Urine Mucus 3+ /HPF 04/09/20 03:52 Coronavirus (PCR) Positive (Negative) A 04/09/20 03:52 Hep Bs Antigen Reactive (Negative) 04/09/20 15:09 Microbiology: Microbiology 04/09/20 04:23 Peripheral/Venous Blood Culture - Preliminary NO GROWTH AFTER 24 HOURS 04/09/20 05:06 Peripheral/Venous Blood Culture - Preliminary NO GROWTH AFTER 24 HOURS Greco/IV: Voiding Method Toilet Active Medications - Current Medications Current Medications: Generic Name Dose Route Start Last Admin Trade Name Freq PRN Reason Stop Dose Admin Acetaminophen 650 mg 04/09/20 05:35 Acetaminophen 325 Mg Tab PO Q4H PRN Pain MILD(1-3)/Fever >100.5/SHI Al Hydrox/Mg Hydrox/Simethicone 15 ml 04/09/20 06:22 Alum-Mag Hydroxide-Simethicone [id number]/5ml Oral Liqd 30 Ml PO Q4H PRN Indigestion Ascorbic Acid 500 mg 04/09/20 10:00 04/10/20 09:31 Ascorbic Acid 500 Mg Tab PO 500 mg QDAY AMARIS Administration Aspirin 81 mg 04/09/20 10:00 04/10/20 09:30 Aspirin Ec 81 Mg Tab PO 81 mg QDAY AMARIS Administration Azithromycin 500 mg 04/10/20 10:00 04/10/20 09:30 Azithromycin 250 Mg Tab PO 500 mg QDAY AMARIS Administration Dexamethasone 6 mg 04/09/20 10:00 04/10/20 09:31 Dexamethasone 4 Mg/Ml Vial IV 04/18/20 10:01 6 mg DAILY AMARIS Administration Enoxaparin Sodium 40 mg 04/09/20 10:00 04/10/20 09:31 Enoxaparin 40 Mg/0.4 Ml Inj SUB-Q 40 mg QDAY AMARIS Administration Protocol Famotidine 20 mg 04/09/20 10:00 04/10/20 09:31 Famotidine 20 Mg Tab PO 20 mg BID AMARIS Administration Ceftriaxone Sodium 2 gm in 100 mls @ 200 mls/hr 04/09/20 10:00 04/10/20 09:47 Rocephin/Ns 2 Gm/100 Ml IV 200 mls/hr Q24HR AMARIS Administration Protocol Sodium Chloride 1,000 mls @ 75 mls/hr 04/09/20 06:45 04/10/20 05:16 Nacl 0.9% 1000 Ml IV 75 mls/hr DIRECT AMARIS Administration Lactulose 20 gm 04/09/20 06:22 Lactulose 20 Gm/30 Ml Oral Liqd PO QHS PRN Constipation Morphine Sulfate 2 mg 04/09/20 06:22 Morphine 2 Mg/1 Ml Inj IV Q4H PRN Pain, Moderate (4-6) Ondansetron HCl 4 mg 04/09/20 05:35 Ondansetron 4 Mg/2 Ml Inj IV Q8H PRN Nausea And Vomiting Sodium Chloride 10 ml 04/09/20 10:00 04/10/20 09:32 Sodium Chloride 0.9% 10 Ml Flush Syringe IV 10 ml BID AMARIS Administration Sodium Chloride 10 ml 04/09/20 05:35 04/09/20 12:16 Sodium Chloride 0.9% 10 Ml Flush Syringe IV 10 ml PRN PRN Administration LINE FLUSH Tramadol HCl 50 mg 04/09/20 06:22 Tramadol 50 Mg Tab PO Q4H PRN Pain, Moderate (4-6) Trazodone HCl 50 mg 04/09/20 06:22 Trazodone 50 Mg Tab PO QHS PRN Insomnia
--- NOTE | 2020-04-10 15:43 | Progress Note ---
Assessment and Plan Acute hypoxemic respiratory failure. Pneumonia. COVID-19 infection. Acute chronic obstructive pulmonary disease exacerbation. History of polycythemia. Mild hyponatremia. Mild metabolic acidosis. Elevated serum inflammatory markers including ferritin and lactate dehydrogenase. - continue to wean supplemental oxygen to keep O2 sats > 92% - continue Bronchodilators (KAYLYNN & LABA) with pulm hygiene per RT - continue systemic steroids with slow taper - continue inhaled corticosteroids - empiric CAP antibiotics X 5 days - avoid nephrotoxins, renally dose all medications - continue mobility protocols to prevent pressure ulcers - PT/OT as tolerated - Wound care per RN/WCT - continue accuchecks with glycemic control per SSI for target blood glucose < 180 mg/dL - continued tobacco abstinence strongly counseled at the bedside - home oxygen evaluation at discharge - GI & VTE prophylaxis - Flu & pneumovax per protocol - Pulmonary out patient follow up for PFTs and optimization of respiratory sta tus - continue other care per attending / other consultants - prn analgesia per pain score COVID SPECIFIC INTERVENTIONS - Begin Remdesivir - continue systemic steroids for severe COVID-19 infection empirically - follow repeat COVID tests results - zinc and vitamin C supplementation - Monitor inflammatory markers per facility protocol - ferritin, Ddimer, CRP - consider therapeutic anticoagulation per system Protocol based on d-dimer and clinical considerations - Continue contact and airborne isolation ... re-evaluate in am & prn Subjective Date of service: 04/10/20 Principal diagnosis: Ac hypoxemic resp failure; Pneumonia; COVID-; AE-COPD Interval history: Patient is seen today for: Acute hypoxemic respiratory failure; Pneumonia; COVID-19 infection; AE-COPD; Elevated serum inflammatory markers including ferritin and lactate dehydrogenase. Seen and examined at bedside; 24hour events reviewed; nursing and respiratory care staff consulted; no adverse overnight events reported to me; resting in bed; still SOB; denies chest pain; No N/V/F/C Objective Vital Signs - 12hr 04/10/20 05:45 Temperature 98.9 F Pulse Rate 87 Respiratory 18 Rate Blood Pressure 127/88 O2 Sat by Pulse 93 Oximetry Constitutional: alert, appears uncomfortable, other (middle aged male with mildly increased respiratory effort at rest) Eyes: non-icteric ENT: oropharynx moist Neck: supple, no lymphadenopathy, no JVD Effort: mildly labored Ascultation: Bilateral: rhonchi Percussion: Bilateral: not dull Cardiovascular: regular rate and rhythm Gastrointestinal: normoactive bowel sounds, soft, non-tender, non-distended Integumentary: normal Extremities: no cyanosis, no edema, pulses normal, no ischemia or petechiae Neurologic: normal mental status, non-focal exam, pupils equal and round, motor strength normal and Psychiatric: mood appropriate, affect normal CBC and BMP: 04/10/20 05:08 04/10/20 05:08 ABG, PT/INR, D-dimer: ABG ABG pH 7.444 (7.320-7.450) 04/10/20 06:28 POC ABG pCO2 28.1 mmHg (32.0-48.0) L 04/10/20 06:28 POC ABG pO2 77.6 mmHg (83-108) L 04/10/20 06:28 POC ABG HCO3 18.8 04/10/20 06:28 PT/INR, D-dimer D-Dimer 135.00 ng/mlDDU (0-234) 04/09/20 07:17 Abnormal lab findings: Abnormal Labs 04/08/20 04/08/20 04/09/20 21:06 21:06 03:05 WBC RBC 5.42 H Hgb 17.5 H Hct 51.2 H MCV Lymph % (Auto) 9.5 L [place] % (Auto) 7.6 H Lymph # (Auto) 0.6 L Seg Neutrophils % 82.7 H Seg Neutrophils # POC ABG pCO2 POC ABG pO2 ABG Sodium ABG Glucose Sodium 132 L Carbon Dioxide 19 L Creatinine Glucose 141 H 124 H Hemoglobin A1c Calcium Ferritin Lactate Dehydrogenase 324 H C-Reactive Protein 14.50 H Albumin 3.6 L Arterial Blood Glucose Ur Specific [place] Coronavirus (PCR) 04/09/20 04/09/20 04/09/20 03:05 03:52 03:52 WBC RBC Hgb Hct MCV Lymph % (Auto) [place] % (Auto) Lymph # (Auto) Seg Neutrophils % Seg Neutrophils # POC ABG pCO2 POC ABG pO2 ABG Sodium ABG Glucose Sodium Carbon Dioxide Creatinine Glucose Hemoglobin A1c Calcium Ferritin 960.9 H Lactate Dehydrogenase C-Reactive Protein Albumin Arterial Blood Glucose Ur Specific [place] 1.033 H Coronavirus (PCR) Positive A 04/09/20 04/09/20 04/09/20 07:17 07:17 07:17 WBC RBC Hgb Hct MCV Lymph % (Auto) [place] % (Auto) Lymph # (Auto) Seg Neutrophils % Seg Neutrophils # POC ABG pCO2 POC ABG pO2 ABG Sodium ABG Glucose Sodium Carbon Dioxide Creatinine Glucose 152 H Hemoglobin A1c 6.4 H Calcium Ferritin 940.5 H Lactate Dehydrogenase 314 H C-Reactive Protein 13.80 H Albumin Arterial Blood Glucose Ur Specific [place] Coronavirus (PCR) 04/10/20 04/10/20 04/10/20 05:08 05:08 06:28 WBC 12.5 H RBC 5.06 H Hgb 16.1 H Hct 47.9 H MCV 95 H Lymph % (Auto) 5.7 L [place] % (Auto) Lymph # (Auto) 0.7 L Seg Neutrophils % 87.7 H Seg Neutrophils # 10.9 H POC ABG pCO2 28.1 L POC ABG pO2 77.6 L ABG Sodium 135.7 L ABG Glucose 138 H Sodium Carbon Dioxide 21 L Creatinine 0.7 L Glucose 152 H Hemoglobin A1c Calcium 8.3 L Ferritin Lactate Dehydrogenase C-Reactive Protein Albumin Arterial Blood Glucose 138 H Ur Specific [place] Coronavirus (PCR) Chest x-ray: other (none today) Allied health notes reviewed: nursing
[2020-04-10] MEDS ORDERED: REMDESIVIR 200 MG in SODIUM CHLORIDE 0.9% 250ML 250 ML IV ONE (17:00)
[2020-04-10] MEDS ORDERED: REMDESIVIR 100 MG VIAL IV ONE (17:00)
[2020-04-10] MEDS ORDERED: ZOLPIDEM 5 MG TAB PO PRN (19:26)
--- NOTE | 2020-04-10 20:14 | Consultation ---
PULMONARY CONSULT NOTE CONSULTING PHYSICIAN: Adriana Pineda NP REASON FOR CONSULTATION: COVID-19 and pneumonia. CHIEF COMPLAINT AND HISTORY OF PRESENT ILLNESS: As follows, the patient is a now 54-year-old male with a past medical history significant amongst other things for a diagnosis of COPD and hypertension, came into the Emergency Room complaining of acute onset of shortness of breath a persistent dry cough, wheezing, generalized weakness, generalized body ache, flu-like symptoms, nasal and sinus congestions as well as fevers and chills. He complained of significant dyspnea on exertion. Denied orthopnea. In the 12 hours before he came, the coughing was the main thing that he could not control that is why brought him in. In the Emergency Room, he was evaluated. It is unclear if he had any known COVID-19 contacts. Evaluation however, in the Emergency Room as well as PCR test was positive for COVID-19 infection. We are asked to assist with management. When I stopped by to see him, he was resting in bed. He denied history of tobacco use or abuse. He denied any new leg pain or swelling either unilaterally or bilaterally or any suggestion of venous thromboembolic disease. He denied any gross or streaky hemoptysis. This really is as much of the history of presentation as I have. PAST MEDICAL HISTORY: Hypertension, COPD, hepatitis B. PAST SURGICAL HISTORY: He states he has had C-spine surgery. MEDICATIONS: He was on at the time I stopped by to see him were reviewed. Pertinent medications included the following: Tylenol 650 mg p.o. q. 4 hours p.r.n. mild pain or fevers, vitamin C 500 mg p.o. daily, aspirin 81 mg p.o. daily, Decadron 6 mg IV daily, Lovenox 40 mg subcutaneous daily, Pepcid 20 mg p.o. b.i.d., Rocephin 2 g IV daily, azithromycin 500 mg IV daily, p.r.n., lactulose, morphine sulfate 2 mg IV q. 4 hours p.r.n. moderate pain, Zofran 4 mg IV q. 8 hours p.r.n. nausea and vomiting, tramadol 50 mg p.o. q. 4 hours p.r.n. moderate pain, and trazodone 50 mg p.o. at bedtime p.r.n. insomnia. ALLERGIES: HALDOL, nature of this allergy is unknown. DIET: He is a well-built gentleman. Denies significant weight loss or gain in the preceding few weeks to months. FAMILY AND SOCIAL HISTORY: Apparently lives in the community. Denies alcohol, tobacco, or illicit drug use or abuse. Family history is otherwise noncontributory. REVIEW OF SYSTEMS: No loss of consciousness. No new onset seizures. No new onset focal weakness. Denied gross hematochezia or melena. Denies gross hematuria or dysuria. No hematemesis. No hemoptysis. He has had a cough, mostly dry cough. He denies seizures. He denies heat or cold intolerance. Complete 13-system review of systems obtained. Pertinent positives and/or negatives as in body of history above, otherwise they are noncontributory. PHYSICAL EXAMINATION: VITAL SIGNS: At presentation in the Emergency Room, review of vital signs shows that he was afebrile, temperature 98.1 degrees Fahrenheit, pulse of 114, respiratory rate of 34 and blood pressure 112/73, O2 sats were 95%, inspired oxygen concentration at that time was not recorded. When I stopped by to see him, his O2 sats were 96% that was on 4 liters nasal cannula. GENERAL: He is a middle-aged male, normocephalic, atraumatic, talking to me with mostly uninterrupted sentences, but with mildly increased respiratory effort at rest, interrupted by coughing spells intermittently. HEAD, EYES, EARS, NOSE, AND THROAT: Anicteric. No conjunctival erythema. Oropharynx was moist. No gross jugular venous distention, no thyromegaly. NECK: Grossly, there were no palpable lymph nodes in the supraclavicular or submandibular lymph node chains. LUNGS: Auscultation of both lung lo significant for bibasilar inspiratory rales. No active wheezing, slightly diminished bilateral air movement. HEART: Heart sounds 1 and 2 are heard. They were regular in rate and rhythm at the time of my evaluation without overt rubs or murmurs. ABDOMEN: Soft, full, bowel sounds are positive, nontender, no palpable hepatosplenomegaly. EXTREMITIES: Without overt digital clubbing, no cyanosis, no pedal edema. Pedal pulses are 2+ bilaterally. NEUROLOGIC: Pupils are equal, round, about 4 mm, reactive to light. Extraocular muscle movements are intact. He moves all 4 extremities spontaneously. Cranial nerves 2-12 are intact. PSYCHIATRIC: His mood and affect were anxious. LABORATORY DATA: From my review are as follows: White cell count at presentation 6700, hemoglobin 17.5, hematocrit 51.2, platelet count 162. No manual differential. D-dimer was within normal limits. Serum sodium 132, potassium 4.2, chloride 99, bicarbonate 19, BUN 19, creatinine 1.0, glucose 141. Hemoglobin A1c 6.4. Ferritin was up at 961. LDH was up at 324. Troponin within normal limits. CRP 14.5. Procalcitonin was 1.36. Urinalysis was negative for nitrites and leukocyte esterase. Coronavirus PCR test was positive. Two sets of blood cultures are no growth to date. Chest x-ray has been reviewed. It shows changes consistent with hyperinflation, likely bullous emphysema involving the right lung greater than the left and the upper zones in particular patchy areas of infiltrate/atelectasis in particularly in the right mid lung zones. No gross pneumothorax, no gross bony fracture. ASSESSMENT: 1. Acute hypoxemic respiratory failure. 2. Pneumonia. 3. COVID-19 infection. 4. Acute chronic obstructive pulmonary disease exacerbation. 5. History of polycythemia. 6. Mild hyponatremia. 7. Mild metabolic acidosis. 8. Elevated serum inflammatory markers including ferritin and lactate dehydrogenase. PLAN: We will keep him on supplemental oxygen target O2 sats greater than or equal to 92%. Aspiration precautions will be maintained. He will be continued on bronchodilators. I am going to add long-acting bronchodilators as well as inhaled corticosteroids if we can get that as an MDI form that will be the preferred method of administration. We will continue Decadron, both for the coronavirus infection, but also has a systemic steroid for the COPD exacerbation. He is appropriately on community-acquired pneumonia therapy. I will defer to Infectious Disease for the institution of targeted therapies to include remdesivir. Vitamin C and zinc replacement will be started. He is appropriately on GI and DVT prophylaxis. We will trend the inflammatory markers to guide clinical decision making. Flu and pneumonia vaccination will be addressed per protocol. Thank you very much for the consult. We will follow along and make further recommendations as picture progresses/becomes clearer. JOB# [id number] ONELIA/CATINA YANG
[2020-04-10] MEDS: SODIUM CHLORIDE 0.9% 50 ML IVPB IV SCH (21:00)
[2020-04-10] MEDS: BENZONATATE 100 MG CAP PO SCH (22:00)
[2020-04-11] MEDS: PANTOPRAZOLE 40 MG TAB PO SCH ×2 (04:10→07:46)
[2020-04-11] MEDS: BENZONATATE 100 MG CAP PO SCH ×2 (07:46→07:55)
[2020-04-11] MEDS ORDERED: ALPRAZolam 0.5 MG TAB PO PRN (12:00)
--- NOTE | 2020-04-11 12:25 | Progress Note ---
Assessment and Plan - Patient Problems (1) Acute exacerbation of COPD with asthma Current Visit: Yes Status: Acute (2) Acute respiratory failure with hypoxia Current Visit: Yes Status: Acute (3) Hyponatremia Current Visit: Yes Status: Acute (4) Person under investigation for COVID-19 Current Visit: Yes Status: Acute (5) Pneumonia due to severe acute respiratory syndrome coronavirus 2 (SARS-CoV-2) Current Visit: Yes Status: Acute (6) Polycythemia Current Visit: Yes Status: Acute Subjective Date of service: 04/11/20 Objective Vital Signs - 12hr 04/11/20 04/11/20 04/11/20 06:25 06:31 09:49 Temperature 97.9 F 98.6 F Pulse Rate 113 H 72 Respiratory 26 H 24 Rate Blood Pressure 140/103 154/89 O2 Sat by Pulse 90 99 92 Oximetry CBC and BMP: 04/10/20 05:08 04/10/20 05:08 ABG, PT/INR, D-dimer: ABG ABG pH 7.444 (7.320-7.450) 04/10/20 06:28 POC ABG pCO2 28.1 mmHg (32.0-48.0) L 04/10/20 06:28 POC ABG pO2 77.6 mmHg (83-108) L 04/10/20 06:28 POC ABG HCO3 18.8 04/10/20 06:28 PT/INR, D-dimer D-Dimer 135.00 ng/mlDDU (0-234) 04/09/20 07:17 Abnormal lab findings: Abnormal Labs 04/08/20 04/08/20 04/09/20 21:06 21:06 03:05 WBC RBC 5.42 H Hgb 17.5 H Hct 51.2 H MCV Lymph % (Auto) 9.5 L [place] % (Auto) 7.6 H Lymph # (Auto) 0.6 L Seg Neutrophils % 82.7 H Seg Neutrophils # POC ABG pCO2 POC ABG pO2 ABG Sodium ABG Glucose Sodium 132 L Carbon Dioxide 19 L Creatinine Glucose 141 H 124 H Hemoglobin A1c Calcium Ferritin Lactate Dehydrogenase 324 H C-Reactive Protein 14.50 H Albumin 3.6 L Arterial Blood Glucose Ur Specific [place] Coronavirus (PCR) 04/09/20 04/09/20 04/09/20 03:05 03:52 03:52 WBC RBC Hgb Hct MCV Lymph % (Auto) [place] % (Auto) Lymph # (Auto) Seg Neutrophils % Seg Neutrophils # POC ABG pCO2 POC ABG pO2 ABG Sodium ABG Glucose Sodium Carbon Dioxide Creatinine Glucose Hemoglobin A1c Calcium Ferritin 960.9 H Lactate Dehydrogenase C-Reactive Protein Albumin Arterial Blood Glucose Ur Specific [place] 1.033 H Coronavirus (PCR) Positive A 04/09/20 04/09/20 04/09/20 07:17 07:17 07:17 WBC RBC Hgb Hct MCV Lymph % (Auto) [place] % (Auto) Lymph # (Auto) Seg Neutrophils % Seg Neutrophils # POC ABG pCO2 POC ABG pO2 ABG Sodium ABG Glucose Sodium Carbon Dioxide Creatinine Glucose 152 H Hemoglobin A1c 6.4 H Calcium Ferritin 940.5 H Lactate Dehydrogenase 314 H C-Reactive Protein 13.80 H Albumin Arterial Blood Glucose Ur Specific [place] Coronavirus (PCR) 04/10/20 04/10/20 04/10/20 05:08 05:08 06:28 WBC 12.5 H RBC 5.06 H Hgb 16.1 H Hct 47.9 H MCV 95 H Lymph % (Auto) 5.7 L [place] % (Auto) Lymph # (Auto) 0.7 L Seg Neutrophils % 87.7 H Seg Neutrophils # 10.9 H POC ABG pCO2 28.1 L POC ABG pO2 77.6 L ABG Sodium 135.7 L ABG Glucose 138 H Sodium Carbon Dioxide 21 L Creatinine 0.7 L Glucose 152 H Hemoglobin A1c Calcium 8.3 L Ferritin Lactate Dehydrogenase C-Reactive Protein Albumin Arterial Blood Glucose 138 H Ur Specific [place] Coronavirus (PCR) Chest x-ray: report reviewed, image reviewed Additional Studies: CHEST 2 VIEWS 03/3020 INDICATION / CLINICAL INFORMATION: cough, fever. COMPARISON: 07/30/2019 FINDINGS: SUPPORT DEVICES: None. HEART / MEDIASTINUM: Stable. LUNGS / PLEURA: Interval development of linear infiltrate in the right midlung field. Emphysematous lung changes with bulla are similar. No pneumothorax. No pleural effusion. ADDITIONAL FINDINGS: ACDF the lower cervical spine in stable position. IMPRESSION: 1. Interval development of infiltrate in the right midlung field likely represents infectious process given the patient's clinical history. 2. Stable emphysematous lung changes with bulla formation.
[2020-04-11] MEDS: ENOXAPARIN 40 MG/0.4 ML INJ SUB-Q SCH (13:08)
[2020-04-11] MEDS: dexAMETHasone 4 MG/ML VIAL IV SCH (13:08)
[2020-04-11] MEDS: AZITHROMYCIN 250 MG TAB PO SCH (13:09)
[2020-04-11] MEDS: ASPIRIN EC 81 MG TAB PO SCH (13:10)
[2020-04-11] MEDS: ASCORBIC ACID 500 MG TAB PO SCH (13:10)
[2020-04-11] MEDS: cefTRIAXone/NS 2 GM/100 ML 2 GM/100 ML BAG IV SCH (13:11)
[2020-04-11] MEDS ORDERED: ALBUTEROL 8.5 GM MDI INHALATION IH PRN (16:00)
[2020-04-11 17:48] VITALS: BP 122/78
--- NOTE | 2020-04-11 19:04 | Progress Note ---
Assessment and Plan Assessment and plan: -- positive COVID-19 infection 04/09/2020 Current Visit: Yes Status: Acute Plan to address problem: Chest x-ray shows infiltrate Continue empiric abx, procalcitonin is high Airborne and contact isolation Ascorbic acid and zinc sulphate Blood culture-urinalysis IV steroids, IV remdesivir, Prone position ID following, Anticoagulation per protocol Follow inflammatory markers --Acute resp failure with hypoxia on high flow o2 Current Visit: Yes Status: Acute Plan to address problem: On high flow oxygen, 40L/100%/90 % o2 sat. Bipap as needed, pulmonary following [id number], critically ill patient wheezing on auscultation-continue systemic steroids Home oxygen evaluation -- Acute exacerbation of COPD with asthma Current Visit: Yes Status: Acute Plan to address problem: respiratory care-bronchodilators and oxygen supplement Chest x-ray shows right midline infiltrate and emphysema Pulmonary following --Sepsis due to Right-sided pneumonia; Current Visit: Yes Status: Acute Plan to address problem: procalcitonin high, We will continue empiric antibiotics Tachycardia,leukocytosis and rt pneumonia on CXR Follow cultures, high flow oxygen -- Polycythemia Current Visit: Yes Status: Acute Plan to address problem: Most likely 2/2 to chronic hypoxia/COPD/dehydration Continue oxygen supplement, mild improvement patient denies tobacco use daily aspirin, Monitor H/H -- Hyponatremia/resolved Current Visit: Yes Status: Acute Plan to address problem: I will continue IV hydration with .9NS Monitor electrolytes --DVT prophylaxis Current Visit: Yes Status: Acute Plan to address problem: Lovenox We will closely monitor the patient and adjust management as needed Plan of care reviewed with the patient and his nurse 04/10/2020; patient was Covid positive on 04/09/2020 contact and droplet isolation,ID following patient feels slightly better COVID-19 protocol treatments initiated ID recommendation noted and appreciated We will closely monitor the patient and adjust the management as needed Home oxygen evaluation 1 to 2 days 04/11/2020:Patient is on high flow oxygen 40L/100%/90% o2 sat Pulm and ID following History Interval history: Patient complains of generalized weakness and mild nausea no vomiting Also reports that he is feeling weak ,on high flow oxygen. mild distress. Afebrile vital signs noted Hospitalist Physical - Constitutional Vitals: Temp Pulse Resp BP Pulse Ox 97.1 F L 116 H 20 122/78 88 04/11/20 16:19 04/11/20 16:19 04/11/20 16:19 04/11/20 16:19 04/11/20 16:19 General appearance: Present: mild distress, well-nourished, other (Responding appropriately, on high flow o2) - EENT Eyes: Present: PERRL, EOM intact ENT: hearing intact, clear oral mucosa - Neck Neck: Present: supple, normal ROM - Respiratory Respiratory effort: normal Respiratory: bilateral: diminished, rales, negative: rhonchi, wheezing - Cardiovascular Rhythm: regular Heart Sounds: Present: S1 & S2 - Extremities Extremities: no ischemia, No edema - Abdominal General gastrointestinal: soft, non-tender, non-distended, normal bowel sounds - Integumentary Integumentary: Present: clear, warm - Psychiatric Psychiatric: appropriate mood/affect, cooperative - Neurologic Neurologic: moves all extremities HEART Score - HEART Score Troponin: Troponin T < 0.010 ng/mL (0.00-0.029) 04/09/20 03:05 Results - Labs CBC & Chem 7: 04/10/20 05:08 04/10/20 05:08 Labs: Laboratory Last Values WBC 12.5 K/mm3 (4.5-11.0) H 04/10/20 05:08 RBC 5.06 M/mm3 (3.65-5.03) H 04/10/20 05:08 Hgb 16.1 gm/dl (11.8-15.2) H 04/10/20 05:08 Hct 47.9 % (35.5-45.6) H 04/10/20 05:08 MCV 95 fl (84-94) H 04/10/20 05:08 MCH 32 pg (28-32) 04/10/20 05:08 MCHC 34 % (32-34) 04/10/20 05:08 RDW 13.4 % (13.2-15.2) 04/10/20 05:08 Plt Count 176 K/mm3 (140-440) 04/10/20 05:08 Lymph % (Auto) 5.7 % (13.4-35.0) L 04/10/20 05:08 [place] % (Auto) 6.5 % (0.0-7.3) 04/10/20 05:08 Eos % (Auto) 0.0 % (0.0-4.3) 04/10/20 05:08 Baso % (Auto) 0.1 % (0.0-1.8) 04/10/20 05:08 Lymph # (Auto) 0.7 K/mm3 (1.2-5.4) L 04/10/20 05:08 [place] # (Auto) 0.8 K/mm3 (0.0-0.8) 04/10/20 05:08 Eos # (Auto) 0.0 K/mm3 (0.0-0.4) 04/10/20 05:08 Baso # (Auto) 0.0 K/mm3 (0.0-0.1) 04/10/20 05:08 Seg Neutrophils % 87.7 % (40.0-70.0) H 04/10/20 05:08 Seg Neutrophils # 10.9 K/mm3 (1.8-7.7) H 04/10/20 05:08 D-Dimer 135.00 ng/mlDDU (0-234) 04/09/20 07:17 ABG pH 7.444 (7.320-7.450) 04/10/20 06:28 POC ABG pCO2 28.1 mmHg (32.0-48.0) L 04/10/20 06:28 POC ABG pO2 77.6 mmHg (83-108) L 04/10/20 06:28 POC ABG HCO3 18.8 04/10/20 06:28 POC ABG Base Excess -3.6 04/10/20 06:28 ABG Hemoglobin 16.1 (12.0-17.5) 04/10/20 06:28 ABG Oxyhemoglobin 94.5 (94-98) 04/10/20 06:28 ABG Methemoglobin 0.3 (0.0-1.5) 04/10/20 06:28 ABG Sodium 135.7 mmol/L (136.0-145.0) L 04/10/20 06:28 ABG Potassium 4.1 mmol/L (3.40-4.50) 04/10/20 06:28 ABG Chloride 105.0 mmol/L (98-107) 04/10/20 06:28 ABG Glucose 138 mg/dL (65-95) H 04/10/20 06:28 Carboxyhemoglobin 0.7 (0.5-1.5) 04/10/20 06:28 FiO2 30.0 04/10/20 06:28 Sodium 138 mmol/L (137-145) 04/10/20 05:08 Potassium 4.2 mmol/L (3.6-5.0) 04/10/20 05:08 Chloride 106.5 mmol/L (98-107) 04/10/20 05:08 Carbon Dioxide 21 mmol/L (22-30) L 04/10/20 05:08 Anion Gap 15 mmol/L 04/10/20 05:08 BUN 19 mg/dL (9-20) 04/10/20 05:08 Creatinine 0.7 mg/dL (0.8-1.3) L 04/10/20 05:08 Estimated GFR > 60 ml/min 04/10/20 05:08 BUN/Creatinine Ratio 27 % 04/10/20 05:08 Glucose 152 mg/dL (75-100) H 04/10/20 05:08 Hemoglobin A1c 6.4 % (4-6) H 04/09/20 07:17 Lactic Acid 1.30 mmol/L (0.7-2.0) 04/09/20 03:45 Calcium 8.3 mg/dL (8.4-10.2) L 04/10/20 05:08 Phosphorus 3.10 mg/dL (2.5-4.5) 04/09/20 07:17 Magnesium 2.00 mg/dL (1.7-2.3) 04/09/20 07:17 Ferritin 940.5 ng/mL (30.0-300.0) H 04/09/20 07:17 Total Bilirubin 0.50 mg/dL (0.1-1.2) 04/08/20 21:06 AST 31 units/L (5-40) 04/08/20 21:06 ALT 26 units/L (7-56) 04/08/20 21:06 Alkaline Phosphatase 45 units/L (35-129) 04/08/20 21:06 Lactate Dehydrogenase 314 units/L (91-180) H 04/09/20 07:17 Troponin T < 0.010 ng/mL (0.00-0.029) 04/09/20 03:05 C-Reactive Protein 13.80 mg/dL (0.00-1.30) H 04/09/20 07:17 Total Protein 7.3 g/dL (6.3-8.2) 04/08/20 21:06 Albumin 3.6 g/dL (3.9-5) L 04/08/20 21:06 Albumin/Globulin Ratio 1.0 % 04/08/20 21:06 Procalcitonin 1.31 ng/mL (<0.15) 04/09/20 07:17 Arterial Blood Glucose 138 mg/dL (65-95) H 04/10/20 06:28 Arterial Blood Ionized Calcium 4.7 mg/dL (4.6-5.3) 04/10/20 06:28 Urine Color Tiana (Yellow) 04/09/20 03:52 Urine Turbidity Clear (Clear) 04/09/20 03:52 Urine pH 5.0 (5.0-7.0) 04/09/20 03:52 Ur Specific [place] 1.033 (1.003-1.030) H 04/09/20 03:52 Urine Protein 100 mg/dl mg/dL (Negative) 04/09/20 03:52 Urine Glucose (UA) >=500 mg/dL (Negative) 04/09/20 03:52 Urine Ketones 20 mg/dL (Negative) 04/09/20 03:52 Urine Blood Neg (Negative) 04/09/20 03:52 Urine Nitrite Neg (Negative) 04/09/20 03:52 Urine Bilirubin Neg (Negative) 04/09/20 03:52 Urine Urobilinogen 2.0 mg/dL (<2.0) 04/09/20 03:52 Ur Leukocyte Esterase Neg (Negative) 04/09/20 03:52 Urine WBC (Auto) 3.0 /HPF (0.0-6.0) 04/09/20 03:52 Urine RBC (Auto) 2.0 /HPF (0.0-6.0) 04/09/20 03:52 U Epithel Cells (Auto) < 1.0 /HPF (0-13.0) 04/09/20 03:52 Urine Bacteria (Auto) 1+ /HPF (Negative) 04/09/20 03:52 Urine Mucus 3+ /HPF 04/09/20 03:52 Nasal Screen MRSA (PCR) Negative (Negative) 04/10/20 Unknown Coronavirus (PCR) Positive (Negative) A 04/09/20 03:52 Hep Bs Antigen Reactive (Negative) 04/09/20 15:09 Microbiology: Microbiology 04/09/20 04:23 Peripheral/Venous Blood Culture - Preliminary NO GROWTH AFTER 48 HOURS 04/09/20 05:06 Peripheral/Venous Blood Culture - Preliminary NO GROWTH AFTER 48 HOURS Greco/IV: Voiding Method Urinal Active Medications - Current Medications Current Medications: Generic Name Dose Route Start Last Admin Trade Name Freq PRN Reason Stop Dose Admin Acetaminophen 650 mg 04/09/20 05:35 Acetaminophen 325 Mg Tab PO Q4H PRN Pain MILD(1-3)/Fever >100.5/SHI Al Hydrox/Mg Hydrox/Simethicone 15 ml 04/09/20 06:22 Alum-Mag Hydroxide-Simethicone [id number]/5ml Oral Liqd 30 Ml PO Q4H PRN Indigestion Albuterol 2 puff 04/11/20 16:00 Albuterol 8.5 Gm Mdi Inhalation IH Q4HRT PRN Shortness Of Breath Alprazolam 0.5 mg 04/11/20 12:00 04/11/20 13:09 Alprazolam 0.5 Mg Tab PO 0.5 mg Q8H PRN Administration Anxiety Arformoterol Tartrate 15 mcg 04/11/20 20:00 Arformoterol 15 Mcg/2 Ml Nebu IH Q12HRT [facility] Ascorbic Acid 500 mg 04/09/20 10:00 04/11/20 13:10 Ascorbic Acid 500 Mg Tab PO 500 mg QDAY AMARIS Administration Aspirin 81 mg 04/09/20 10:00 04/11/20 13:10 Aspirin Ec 81 Mg Tab PO 81 mg QDAY AMARIS Administration Azithromycin 500 mg 04/10/20 10:00 04/11/20 13:09 Azithromycin 250 Mg Tab PO 04/13/20 10:01 500 mg QDAY AMARIS Administration Benzonatate 100 mg 04/10/20 22:00 04/11/20 07:55 Benzonatate 100 Mg Cap PO Not Given Q8HR AMARIS Budesonide 0.5 mg 04/11/20 20:00 Budesonide 0.5 Mg/2 Ml Nebu IH Q12HRT [facility] Dexamethasone 6 mg 04/09/20 10:00 04/11/20 13:08 Dexamethasone 4 Mg/Ml Vial IV 04/18/20 10:01 6 mg DAILY AMARIS Administration Enoxaparin Sodium 40 mg 04/09/20 10:00 04/11/20 13:08 Enoxaparin 40 Mg/0.4 Ml Inj SUB-Q 40 mg QDAY AMARIS Administration Protocol Ceftriaxone Sodium 2 gm in 100 mls @ 200 mls/hr 04/09/20 10:00 04/11/20 13:11 Rocephin/Ns 2 Gm/100 Ml IV 04/13/20 10:29 200 mls/hr Q24HR AMARIS Administration Protocol Sodium Chloride 1,000 mls @ 75 mls/hr 04/09/20 06:45 04/10/20 18:45 Nacl 0.9% 1000 Ml IV 75 mls/hr DIRECT AMARIS Administration REMDESIVIR 100 mg/ Sodium 250 mls @ 500 mls/hr 04/11/20 21:00 Chloride IV 04/14/20 21:29 Q24HR@2100 AMARIS Lactulose 20 gm 04/09/20 06:22 Lactulose 20 Gm/30 Ml Oral Liqd PO QHS PRN Constipation Morphine Sulfate 2 mg 04/09/20 06:22 Morphine 2 Mg/1 Ml Inj IV Q4H PRN Pain, Moderate (4-6) Ondansetron HCl 4 mg 04/09/20 05:35 Ondansetron 4 Mg/2 Ml Inj IV Q8H PRN Nausea And Vomiting Pantoprazole Sodium 40 mg 04/11/20 04:00 04/11/20 07:46 Pantoprazole 40 Mg Tab PO 40 mg QDAC AMARIS Administration Sodium Chloride 10 ml 04/09/20 10:00 04/11/20 13:10 Sodium Chloride 0.9% 10 Ml Flush Syringe IV 10 ml BID AMARIS Administration Sodium Chloride 10 ml 04/09/20 05:35 04/09/20 12:16 Sodium Chloride 0.9% 10 Ml Flush Syringe IV 10 ml PRN PRN Administration LINE FLUSH Sodium Chloride 50 ml 04/10/20 21:00 04/10/20 21:00 Sodium Chloride 0.9% 50 Ml Ivpb IV 04/14/20 21:01 50 ml Q24HR@2100 AMARIS Administration Tramadol HCl 50 mg 04/09/20 06:22 Tramadol 50 Mg Tab PO Q4H PRN Pain, Moderate (4-6) Trazodone HCl 50 mg 04/09/20 06:22 Trazodone 50 Mg Tab PO QHS PRN Insomnia Zolpidem Tartrate 5 mg 04/10/20 19:26 04/10/20 23:06 Zolpidem 5 Mg Tab PO 5 mg QHS PRN Administration Sleep Nutrition/Malnutrition Assess - Dietary Evaluation Nutrition/Malnutrition Findings: Nutrition Notes Start: 04/11/20 14:10 Freq: Status: Active Protocol: Document 04/11/20 14:10 MTALL (Rec: 04/11/20 14:12 MTALL [email or web address]) Nutrition Notes Need for Assessment generated from: quality assurance lead Initial or Follow up Brief Note Current Diagnosis COPD,Hypertension Other Pertinent Diagnosis COPD exacerbation, r/o COVID- 19 Current Diet Regular Labs/Tests A1C 6.4 Pertinent Medications Decadron, Vit C Height 5 ft 4 in Weight 55.2 kg [place] Body Weight (kg) 59.09 BMI 20.9 Weight Status Appropriate Subjective/Other Information Pt screened for skin risk ( Rcihi score: 18). He consumed 75% meals yesterday. Percent of energy/protein needs met: 100% energy and pro Burn Absent Trauma Absent Current % PO Good (75-100%) Minimum of two criteria No Is patient on ventilator? No Is Patient Ambulatory and/or Out of Bed Yes REE-([facility]-ambulatory/OOB) [ 1693.900 [id number]] Calculation Used for Recommendations [facility] Additional Notes Pro needs 0.8-1g/k-55g/ day Fluid needs 1ml/kcal Nutrition Intervention Follow-Up By: 04/16/20 Additional Comments F/U: intakes
[2020-04-11] MEDS ORDERED: BUDESONIDE 0.5 MG, ARFORMOTEROL NEBU 15 MCG IH SCH (20:00)
[2020-04-11] MEDS ORDERED: BUDESONIDE 0.5 MG/2 ML NEBU IH SCH (20:00)
[2020-04-11] MEDS ORDERED: ARFORMOTEROL 15 MCG/2 ML NEBU IH SCH (20:00)
[2020-04-11] MEDS ORDERED: REMDESIVIR 100 MG in SODIUM CHLORIDE 0.9% 250ML 250 ML IV SCH (21:00)
--- NOTE | 2020-04-11 21:24 | Event Note ---
Date: 04/11/20 I was called to see this patient after hearing a CODE BLUE being called. It appears that the patient was admitted on 04/09/2020 for respiratory distress secondary to Covid and COPD. Patient appears lifeless and ashen and there are no spontaneous breath sounds. The patient is receiving chest compressions and had received 1 dose of epinephrine and sodium bicarbonate. I went to the head of the bed to intubate the patient in respiratory therapy is at bedside as well. At this time, the sap treasury consultant Dr. Chan, arrived to supervise ACLS protocol while intubated the patient. The patient's dentures were removed. I was able to see the vocal cords using a MAC 4 blade. A 7.0 endotracheal tube was placed in between the vocal cords down to about 24 cm at the lips. The bulb was inflated with about 8 cc of air. There was good color change capnography, condensation within the tube, and bilateral breath sounds heard. At this point I left the room and return to the emergency department.
[2020-04-11] MEDS ORDERED: EPINEPHrine 1 MG/10 ML SYRINGE ONE (21:30)
[2020-04-11] MEDS ORDERED: SODIUM BICARB 8.4% 50 MEQ/50 ML SYRINGE IV ONE (21:30)
--- NOTE | 2020-04-11 23:07 | Event Note ---
Date: 04/11/20 [facility] called on patient who has been on admission for acute hypoxic respiratory failure, pneumonia due to COVID-19. Patient was found in asystole. Resuscitative measures according to ACLS protocol was commenced. Patient was successfully intubated by the ER physician. All resuscitative measures were futile. Upon exam: Pupils were fixed and dilated Chest: No breath sounds Cardiovascular exam: No peripheral pulses, no heart sounds Abdomen: Distended Extremities: Cold and clammy Central nervous system: No reflexes Patient pronounced at 21: 24 on 04/11/2020 Patients's uncle who is the next of kin was called twice on [phone] and a voice message left.
[2020-04-12] MEDS: BENZONATATE 100 MG CAP PO SCH (00:19)
[2020-04-12] MEDS: SODIUM CHLORIDE 0.9% 50 ML IVPB IV SCH (00:20)
--- NOTE | 2020-04-13 07:37 | Death Summary ---
Summary - Providers Consults: 04/09/20 06:17 Consult to Physician [CONS] Routine Comment: Consulting Provider: JORGE DONALDSON Physician Instructions: Reason For Exam: PUI covid 04/09/20 06:28 Consult to Physician [CONS] Routine Comment: Consulting Provider: USHA OROZCO Physician Instructions: Reason For Exam: COPD Attending: SABINE CARCAMO - summary Date of admission: 04/09/20 05:35 Date of : 04/11/20
--- NOTE | 2020-04-13 07:49 | Event Note ---
Date: 04/13/20 I called patient's uncle Mr. Cary Montero at [phone], unable to contact as he did not mushroom picker the phone, Left a voice message x2 and encouraged him to call back to discuss about Mr. Cary Black medical condition hospital stay, And events leading to patient's on 04/11/2020 , Covering hospitalist tried to call on the 04/11 and 04/12 could not contact Left voice message.
[2020-04-14 14:08] LABS: Vitamin D, 25-OH, D2 SEE SCANNED RESULT
== END 2020-04-11 21:34 | DRG 871 ==
LOC: ED 18:59 → 3A 04-09 05:35
PROVIDERS: ADMIT Internal Medicine Geriatric Medicine; ATTEND Internal Medicine
PROC: XW033E5 Introduction of Remdesivir Anti-infective into Peripheral Vein, Percutaneous Approach, New Technology Group 5 (ICD-10-PCS; principal; 2020-04-10)
PROC: 4A033R1 Measurement of Arterial Saturation, Peripheral, Percutaneous Approach (ICD-10-PCS; 2020-04-10)
PROC: 5A12012 Performance of Cardiac Output, Single, Manual (ICD-10-PCS; 2020-04-11)
PROC: 0BH17EZ Insertion of Endotracheal Airway into Trachea, Via Natural or Artificial Opening (ICD-10-PCS; 2020-04-11)
DX: A41.89 Other specified sepsis (principal); U07.1 COVID-19; J96.01 Acute respiratory failure with hypoxia; J12.82 Pneumonia due to coronavirus disease 2019; J44.1 Chronic obstructive pulmonary disease with (acute) exacerbation; D75.1 Secondary polycythemia; E87.1 Hypo-osmolality and hyponatremia; J45.901 Unspecified asthma with (acute) exacerbation; Z79.899 Other long term (current) drug therapy; Z88.8 Allergy status to other drugs, medicaments and biological substances; Z79.82 Long term (current) use of aspirin
CPT/HCPCS: 36415; 36600; 71046; 80048; 80053; 81001; 82140; 82306; 82728; 82805; 82947; 82962; 83036; 83615; 83735; 84100; 84145; 84484; 85025; 85379; 86140; 86705; 86706; 87040; 87641; 92950; 93005; 94644; 94760; G0378; J0171; J0456; J0696; J1100; J1650; J7030; J7050; U0003